=== PATIENT | female | born 1950 ===

== ENCOUNTER 2017-03-29 05:03 | Inpatient (IN) ==
[2017-03-29] MEDS ORDERED: MORPHINE 2 MG/1 ML SYRINGE IV STA (05:31)
[2017-03-29] MEDS ORDERED: ONDANSETRON 4 MG/2 ML VIAL IV STA (05:32)
[2017-03-29] MEDS ORDERED: DIPH/TET/ACEL PERT BOOSTER VACCINE 0.5 ML VIAL IM ONE ×3 (05:35→08:49)
[2017-03-29] MEDS ORDERED: MORPHINE 2 MG/1 ML SYRINGE ONE (05:46)
[2017-03-29] MEDS ORDERED: ONDANSETRON 4 MG/2 ML VIAL ONE (05:46)
[2017-03-29 05:47] LABS: Basophils % 0.5 % (0.0-0.8); Eosinophils # 0.2 10*3/uL (0.0-0.87); Eosinophils % 2.8 % (0.00-10.9); Hematocrit 37.2 VOL% (35.7-47.0); Hemoglobin 12.3 GM/DL (12.0-16.0); Immature Granulocytes % 0.8 %; Immature Granulocytes Absolute 0.06 #; Lymphocytes # 2.4 10*3/uL (1.4-4.0); Lymphocytes % 29.4 % (21.3-54.2); Mean Corpuscular HGB Conc 33.1 GM/DL (32-36); Mean Corpuscular Hemoglobin 31 PG (27-34); Mean Corpuscular Volume 93.7 FL (87-102); Monocytes # 0.9 10*3/uL (0.11-0.8); Monocytes % 11.5 % (1.7-12.7); Neutrophils # 4.4 10*3/uL (1.4-7.4); Platelet Count 172 T/CUMM (130-400); Red Blood Count 3.97 MC/CUMM (3.8-5.5); Red Cell Distribution Width 12.6 % (9.3-17.3)
[2017-03-29 05:56] LABS: PT Patient Result 10.2 SECS; Partial Thromboplastin Time 26.4 SECS (0-40)
[2017-03-29] MEDS ORDERED: ceFAZolin 2,000 MG in SODIUM CHLORIDE 0.9% 100 ML IV STA (06:05)
[2017-03-29] MEDS ORDERED: ceFAZolin 1,000 MG VIAL ONE ×3 (06:10→11:57)
[2017-03-29 06:18] LABS: Albumin 2.8 G/DL (3.4-5.0); Bilirubin,Total 0.6 MG/DL (0.2-1.0); Osmolality,Calculated 266.4 MOS/KG (273-304); Potassium 3.8 MMOL/L (3.5-5.1); Total Protein 7.9 G/DL (6.4-8.3)
[2017-03-29] MEDS ORDERED: INSULIN REGULAR 100 UNIT/ML IV STA (07:21)
[2017-03-29] MEDS ORDERED: MAGNESIUM HYDROXIDE SUSP 30 ML UDCUP PO PRN ×2 (07:24→11:41)
[2017-03-29] MEDS ORDERED: INSULIN REGULAR 100 UNIT/ML ONE (08:49)
[2017-03-29] MEDS: SODIUM CHLORIDE 0.9% 1,000 ML IV SCH (08:54)
[2017-03-29] MEDS ORDERED: MORPHINE 2 MG/1 ML SYRINGE IV PRN ×2 (10:07→10:11)
[2017-03-29] MEDS ORDERED: ONDANSETRON 4 MG/2 ML VIAL IV PRN (11:41)
[2017-03-29] MEDS ORDERED: PROMETHAZINE 25 MG/1 ML VIAL IM PRN (11:41)
[2017-03-29] MEDS ORDERED: GLUCAGON 1 MG VIAL IM PRN (13:43)
[2017-03-29] MEDS ORDERED: DEXTROSE 50% 25 GM/50 ML VIAL IV PRN (13:43)
[2017-03-29] MEDS: ceFAZolin 1,000 MG in SYRINGE 1 EACH IV SCH ×2 (14:12→22:50)
[2017-03-29] MEDS ORDERED: PROPOFOL 200 MG/20 ML VIAL IV ONE (15:12)
[2017-03-29] MEDS ORDERED: SEVOFLURANE 1 UNIT/15 MINUTE INH ONE (15:12)
[2017-03-29] MEDS ORDERED: fentaNYL 100 MCG/2 ML VIAL ONE (15:13)
[2017-03-29] MEDS ORDERED: SUCCINYLCHOLINE 200 MG/10 ML VIAL ONE (15:13)
[2017-03-29] MEDS ORDERED: ePHEDrine 50 MG/ML AMP ONE (15:13)
[2017-03-29] MEDS: MORPHINE 2 MG/1 ML SYRINGE IV PRN ×2 (15:24→23:38)
[2017-03-29] MEDS: MAGNESIUM OXIDE 400 MG TABLET PO SCH (20:52)
[2017-03-29] MEDS: METOPROLOL TARTRATE 25 MG TABLET PO SCH (20:53)
[2017-03-29] MEDS: SPIRONOLACTONE 25 MG TABLET PO SCH (20:53)
[2017-03-30] MEDS: ceFAZolin 1,000 MG in SYRINGE 1 EACH IV SCH ×2 (05:37→13:18)
[2017-03-30] MEDS: SODIUM CHLORIDE 0.9% 1,000 ML IV SCH (05:38)
[2017-03-30 06:40] LABS: Calcium 7.4 MG/DL (8.5-10.1); Potassium 4.6 MMOL/L (3.5-5.1)
[2017-03-30] MEDS ORDERED: POTASSIUM CHLORIDE 10 MEQ TABLET PO SCH (09:00)
[2017-03-30] MEDS: SPIRONOLACTONE 25 MG TABLET PO SCH (10:01)
[2017-03-30] MEDS: METOPROLOL TARTRATE 25 MG TABLET PO SCH (10:02)
[2017-03-30] MEDS: MAGNESIUM OXIDE 400 MG TABLET PO SCH (10:02)
[2017-03-30] MEDS ORDERED: MORPHINE 2 MG/1 ML SYRINGE IV PRN (10:30)
[2017-03-30 12:07] VITALS: BP 194/86
== END 2017-03-30 15:25 | disposition home or self-care (01) | DRG 512 ==
LOC: EDUNIT# → EDBD → N.ED 05:03 → N.EDINP 07:24 → N.3E 09:54
PROVIDERS: ADMIT Orthopaedic Surgery; ATTEND Orthopaedic Surgery

== ENCOUNTER 2017-11-13 22:17 | Observation (INO) ==
[2017-11-14] MEDS ORDERED: GLUCAGON 1 MG VIAL IM PRN (00:10)
[2017-11-14] MEDS ORDERED: DEXTROSE 50% 25 GM/50 ML VIAL IV PRN (00:10)
[2017-11-14 04:07] LABS: Albumin 2.5 G/DL (3.4-5.0); Bilirubin,Total 0.5 MG/DL (0.2-1.0); Calcium 7.8 MG/DL (8.5-10.1); Osmolality,Calculated 286.3 MOS/KG (273-304); Potassium 3.5 MMOL/L (3.5-5.1); Total Protein 6.6 G/DL (6.4-8.3)
[2017-11-14 04:25] LABS: Risk Ratio 1.76
[2017-11-14] MEDS: INSULIN REGULAR 100 UNIT/ML SUBCUT SCH ×4 (08:45→21:13)
[2017-11-14] MEDS: ASPIRIN EC 325 MG TABLET PO SCH (09:03)
[2017-11-14] MEDS: ENOXAPARIN 40 MG/0.4 ML SYRINGE SUBCUT SCH (09:03)
[2017-11-14] MEDS: INSULIN GLARGINE 100 UNIT/ML SUBCUT SCH (10:25)
[2017-11-14] MEDS ORDERED: ROSUVASTATIN 10 MG TABLET PO SCH (21:00)
[2017-11-14] MEDS: MAGNESIUM OXIDE 400 MG TABLET PO SCH (21:12)
[2017-11-14] MEDS: SPIRONOLACTONE 25 MG TABLET PO SCH (21:12)
[2017-11-14] MEDS: METOPROLOL TARTRATE 25 MG TABLET PO SCH (21:12)
[2017-11-15 05:32] LABS: Basophils % 0.8 % (0.0-0.8); Eosinophils # 0.2 10*3/uL (0.0-0.87); Eosinophils % 5.5 % (0.00-10.9); Hemoglobin 10.2 GM/DL (12.0-16.0); Immature Granulocytes % 0.3 %; Immature Granulocytes Absolute 0.01 #; Lymphocytes # 1.3 10*3/uL (1.4-4.0); Lymphocytes % 34.6 % (21.3-54.2); Mean Corpuscular HGB Conc 32.9 GM/DL (32-36); Mean Corpuscular Hemoglobin 31 PG (27-34); Mean Corpuscular Volume 95.1 FL (87-102); Mean Platelet Volume 9.9 FL (9.6-12.0); Monocytes # 0.6 10*3/uL (0.11-0.8); Monocytes % 17.3 % (1.7-12.7); Neutrophils # 1.5 10*3/uL (1.4-7.4); Neutrophils % 41.5 % (38.7-73.9); Platelet Count 174 T/CUMM (130-400); Red Blood Count 3.26 MC/CUMM (3.8-5.5); Red Cell Distribution Width 13.4 % (9.3-17.3); White Blood Count 3.6 T/CUMM (4-12)
[2017-11-15 06:00] LABS: Albumin 2.4 G/DL (3.4-5.0); Bilirubin,Total 1.3 MG/DL (0.2-1.0); Osmolality,Calculated 283.1 MOS/KG (273-304); Potassium 3.6 MMOL/L (3.5-5.1); Total Protein 6.5 G/DL (6.4-8.3)
[2017-11-15 06:12] LABS: Band Neutrophils 3 % (0-10); Eosinophils 12 % (0-10); Lymphocytes 23 % (20-55); Platelet Estimate Normal; Segmented Neutrophils 50 % (50-85); Total Cells Counted 100
[2017-11-15 06:13] LABS: Anisocytosis Slight; Atypical Lymphocytes Few; Macrocytosis 1+
[2017-11-15] MEDS ORDERED: MAGNESIUM SULF RIDER 4 GM in PREMIX 1 EACH IV PRN (08:41)
[2017-11-15] MEDS ORDERED: MAGNESIUM SULF RIDER 2 GM in PREMIX 1 EACH IV PRN (08:41)
[2017-11-15] MEDS: INSULIN REGULAR 100 UNIT/ML SUBCUT SCH ×2 (08:44→12:49)
[2017-11-15] MEDS ORDERED: POTASSIUM CHLORIDE 10 MEQ TABLET PO SCH (09:00)
[2017-11-15] MEDS ORDERED: LOSARTAN 25 MG TABLET PO SCH (09:00)
[2017-11-15] MEDS: INSULIN GLARGINE 100 UNIT/ML SUBCUT SCH (09:48)
[2017-11-15] MEDS: METOPROLOL TARTRATE 25 MG TABLET PO SCH (09:48)
[2017-11-15] MEDS: MAGNESIUM OXIDE 400 MG TABLET PO SCH (09:48)
[2017-11-15] MEDS: ASPIRIN EC 325 MG TABLET PO SCH (09:48)
[2017-11-15] MEDS: ENOXAPARIN 40 MG/0.4 ML SYRINGE SUBCUT SCH (09:48)
[2017-11-15] MEDS: SPIRONOLACTONE 25 MG TABLET PO SCH (09:48)
[2017-11-15 12:09] VITALS: BP 180/84
[2017-11-15] MEDS ORDERED: cloNIDine 0.1 MG TABLET PO ONE (12:20)
== END 2017-11-15 15:55 | disposition home or self-care (01) ==
LOC: SUATTDRO 22:17 → INTOOBSV 22:17 → N.TELEN 22:17
PROVIDERS: ADMIT Internal Medicine; ATTEND Internal Medicine

== ENCOUNTER 2018-08-29 21:50 | Observation (INO) ==
[2018-08-29] MEDS ORDERED: SODIUM CHLORIDE 0.9% 500 ML IV STA (22:40)
[2018-08-29] MEDS ORDERED: ALUM/MAG/SIMETH/LIDO VISC 1:1 30 ML BOTTLE PO STA (22:40)
[2018-08-29] MEDS ORDERED: ONDANSETRON 4 MG/2 ML VIAL IV STA (22:40)
[2018-08-29] MEDS ORDERED: MORPHINE 4 MG/1 ML VIAL IV STA (22:40)
[2018-08-29] MEDS ORDERED: ASPIRIN 325 MG TABLET PO STA (22:40)
[2018-08-29] MEDS ORDERED: NITROGLYCERIN 2% OINT 1 INCH/GM PACK TOP STA (22:40)
[2018-08-29 22:48] LABS: Basophils % 0.6 % (0.0-0.8); Eosinophils # 0.3 10*3/uL (0.0-0.87); Eosinophils % 5.4 % (0.00-10.9); Hematocrit 33.7 VOL% (35.7-47.0); Hemoglobin 11.2 GM/DL (12.0-16.0); Immature Granulocytes % 0.8 %; Immature Granulocytes Absolute 0.05 #; Lymphocytes # 2.7 10*3/uL (1.4-4.0); Lymphocytes % 42.6 % (21.3-54.2); Mean Corpuscular HGB Conc 33.2 GM/DL (32-36); Mean Corpuscular Volume 93.9 FL (87-102); Mean Platelet Volume 9.9 FL (9.6-12.0); Monocytes % 8.8 % (1.7-12.7); Neutrophils % 41.8 % (38.7-73.9); Platelet Count 183 T/CUMM (130-400); Red Blood Count 3.59 MC/CUMM (3.8-5.5); Red Cell Distribution Width 12.3 % (9.3-17.3); White Blood Count 6.3 T/CUMM (4-12)
[2018-08-29 22:56] LABS: INR 0.9; PT Patient Result 10.3 SECS
[2018-08-29 22:59] LABS: Albumin 2.5 G/DL (3.4-5.0); Bilirubin,Total 0.4 MG/DL (0.2-1.0); Calcium 7.4 MG/DL (8.5-10.1); Osmolality,Calculated 251.6 MOS/KG (273-304)
[2018-08-29 23:00] LABS: Troponin I < 0.015 NG/ML (0.00-0.045)
[2018-08-29] MEDS ORDERED: THIAMINE INJ 100 MG, FOLIC ACID INJ 1 MG, MULTIVITAMIN INJ 10 ML in SODIUM CHLORIDE 0.9... IV ONE (23:17)
[2018-08-29] MEDS ORDERED: THIAMINE INJ 100 MG, FOLIC ACID INJ 1 MG, MAGNESIUM SULF INJ 2 GM, MULTIVITAMIN INJ 10 ... IV ONE (23:18)
[2018-08-29 23:50] LABS: Apearance,Urine Slightly Hazy (Clear); Bacteria,Urine Few /HPF (Few); Bilirubin,Urine Negative (Negative); Blood, Urine Negative (Negative); Glucose,Urine (UA) 50 mg/dL (Negative); Ketones,Urine Negative (Negative); Mucus,Urine Occasional /LPF (Occasional); Nitrite,Urine Negative (Negative); Protein,Urine Negative; Squamous Epithelial Cell,Urine Occasional /HPF (0-10); Urine Color Yellow (Yellow); Urine Specific Gravity 1.008 (1.001-1.035); Urine Urobilinogen < 2.0 EU/DL (0.2-1.0)
[2018-08-29 23:56] LABS: Barbiturates Screen,Urine Negative (Negative); Benzodiazepines Screen,Urine Negative (Negative); Cannabinoid Screen,Urine Negative (Negative); Opiate Screen,Urine Negative (Negative); Phencyclidine Screen,Urine Negative (Negative)
[2018-08-30] MEDS ORDERED: MAGNESIUM SULF RIDER 2 GM in PREMIX 1 EACH IV PRN (01:10)
[2018-08-30] MEDS ORDERED: chlordiazePOXIDE 25 MG CAPSULE PO PRN (01:10)
[2018-08-30] MEDS ORDERED: ONDANSETRON 4 MG/2 ML VIAL IV PRN (01:10)
[2018-08-30] MEDS ORDERED: ACETAMINOPHEN 325 MG TABLET PO PRN (01:10)
[2018-08-30] MEDS ORDERED: GLUCAGON 1 MG VIAL IM PRN (01:10)
[2018-08-30] MEDS ORDERED: MORPHINE 4 MG/1 ML VIAL IV PRN (01:10)
[2018-08-30] MEDS ORDERED: POTASSIUM CHLORIDE 20 MEQ TABLET PO PRN (01:10)
[2018-08-30] MEDS ORDERED: DOCUSATE SODIUM 100 MG CAPSULE PO PRN (01:10)
[2018-08-30] MEDS ORDERED: DEXTROSE 50% 25 GM/50 ML VIAL IV PRN (01:10)
[2018-08-30] MEDS ORDERED: LORazepam 2 MG/1 ML VIAL IV PRN (01:10)
[2018-08-30 03:14] LABS: Basophils % 0.5 % (0.0-0.8); Eosinophils # 0.4 10*3/uL (0.0-0.87); Eosinophils % 6.2 % (0.00-10.9); Hemoglobin 11.4 GM/DL (12.0-16.0); Immature Granulocytes % 0.9 %; Immature Granulocytes Absolute 0.05 #; Lymphocytes # 2.7 10*3/uL (1.4-4.0); Lymphocytes % 47.5 % (21.3-54.2); Mean Corpuscular HGB Conc 32.6 GM/DL (32-36); Mean Corpuscular Volume 95.6 FL (87-102); Mean Platelet Volume 10.2 FL (9.6-12.0); Monocytes % 8.9 % (1.7-12.7); Platelet Count 163 T/CUMM (130-400); Red Blood Count 3.66 MC/CUMM (3.8-5.5); Red Cell Distribution Width 13.3 % (9.3-17.3); White Blood Count 5.6 T/CUMM (4-12)
[2018-08-30 04:07] LABS: Eosinophils 8 % (0-10); Lymphocytes 50 % (20-55); Segmented Neutrophils 36 % (50-85); Total Cells Counted 100
[2018-08-30 04:09] LABS: Anisocytosis Slight; Microcytosis Slight
[2018-08-30 04:10] LABS: Polychromasia Slight
[2018-08-30 04:11] LABS: Platelet Estimate Normal
[2018-08-30 04:41] LABS: Alanine Aminotransferase 34 U/L (13-56); Albumin 2.3 G/DL (3.4-5.0); Alkaline Phosphatase 135 U/L (45-117); Aspartate Amino Transferase 33 U/L (0-37); Bilirubin,Total < 0.39 MG/DL (0.2-1.0); Blood Urea Nitrogen 8 MG/DL (7-18); Calcium 6.9 MG/DL (8.5-10.1); Glucose 122 MG/DL (74-106); HDL Cholesterol 51 MG/DL (40-60); Osmolality,Calculated 258.8 MOS/KG (273-304); Risk Ratio 2.25; Total Protein 6.3 G/DL (6.4-8.3); Triglycerides 107 MG/DL (2-150); VLDL CHOLESTEROL 21.4 MG/DL
[2018-08-30] MEDS: INSULIN REGULAR 100 UNIT/ML SUBCUT SCH ×3 (08:25→17:08)
[2018-08-30] MEDS ORDERED: MAGNESIUM OXIDE 400 MG TABLET PO SCH (09:00)
[2018-08-30] MEDS ORDERED: ENOXAPARIN 40 MG/0.4 ML SYRINGE SUBCUT SCH (09:00)
[2018-08-30] MEDS ORDERED: METOPROLOL TARTRATE 25 MG TABLET PO SCH (09:00)
[2018-08-30] MEDS ORDERED: PANTOPRAZOLE 40 MG TABLET PO SCH (09:00)
[2018-08-30] MEDS ORDERED: SPIRONOLACTONE 25 MG TABLET PO SCH (09:00)
[2018-08-30] MEDS ORDERED: LOSARTAN 25 MG TABLET PO SCH (09:00)
[2018-08-30 16:18] VITALS: BP 147/68
[2018-08-30] MEDS ORDERED: ROSUVASTATIN 10 MG TABLET PO SCH (21:00)
[2018-08-30] MEDS ORDERED: THIAMINE INJ 100 MG, FOLIC ACID INJ 1 MG, MULTIVITAMIN INJ 10 ML in SODIUM CHLORIDE 0.9... IV SCH (21:00)
== END 2018-08-30 18:55 | disposition home or self-care (01) ==
LOC: EDUNIT# → EDBD → N.EDINP 21:50 → N.ED 21:50 → N.EDINP 08-30 08:46 → N.2E 08-30 09:55
PROVIDERS: ADMIT Internal Medicine; ATTEND Internal Medicine